=== PATIENT | female | born 1950 | race Caucasian/White ===

== ENCOUNTER 2022-12-24 | Outpatient (REF) | payer MEDICARE, OTHER, SELFPAY | END 2022-12-24 00:01 | disposition home or self-care (01) | LOC: CF | PROVIDERS: Visit Provider Nurse Practitioner Family | DX: R06.09 Other forms of dyspnea (principal); Z79.899 Other long term (current) drug therapy; Z87.891 Personal history of nicotine dependence | CPT/HCPCS: 99212 ==

== ENCOUNTER 2022-12-24 14:01 | Outpatient (AMB) | payer MEDICARE, OTHER, SELFPAY ==
[2022-12-24 14:25] VITALS: BP 122/68; PULSE 72; O2SAT 98; BMI 30.6
--- NOTE | 2022-12-24 14:25 | MHC.OFFVIS ---
Intake Vital Signs 12/24/22 14:25 Height 5 ft 3 in Weight 173 lb BMI 30.6 BP 122/68 Blood Pressure Location Rt brachial Position Sitting Pulse 72 Pulse Source Pulse Oximeter Pulse Oximetry (%) 98 Oxygen Delivery Method Room Air Intake Visit Reasons: excessive shortness of breath Template Maker Required: No System Integration Engineer: System Integration Engineer offered & declined Accompanied by: Spouse Allergies No Known Allergies Allergy (Verified 12/24/22 14:35) Medication List - Last Reconciled 12/24/22 by Diana Gamez LPN atorvastatin 20 mg PO DAILY bupropion HCl (Wellbutrin XL) 150 mg PO QAM gabapentin 900 mg PO TID metoprolol tartrate 12.5 mg PO BID omeprazole 40 mg PO BID HPI excessive shortness of breath HPI Details Kathie is a pleasant 72 year old female, former smoker, less than 10 pack year history, quit over 30 years ago, with underlying hypertension and hypercholesterolemia. She was referred for pulmonary evaluation for sudden onset dyspnea after cardiology evaluation was reportedly unremarkable. She reports about three months ago she developed dyspnea, with very minimal exertion. She was evaluated and hypertensive medications were adjusted. She also has had an echo and stress test which did not reveal anything of significance. Reports not available, will obtain. Since then she reports moderate improvements but still with dyspnea with moderate exertion. She denies cough, chest tightness or wheezing. She denies any orthopnea but reports infrequent bilateral lower extremity edema. She states that she has been prescribed lasix in the past but has only used a few times over the past year. She denies any allergic symptoms. She denies any prior respiratory conditions. She denies any family history of respiratory conditions. She denies any occupational exposures. [facility] Surgical History (Updated 12/20/22 @ 10:34 by Diana Gamez LPN) History of hip replacement Hx of cholecystectomy Social History (Updated 12/24/22 @ 14:38 by Diana Gamez LPN) Patient Tobacco Use Status: Former Tobacco user Cigarette Packs Per Day: 0.75 Cigarettes Per Day: 15 Years Smoked: 12 Review of Systems Const Denies chills, Denies excessive sweating, Denies fever(s), Denies headache(s) and Denies night sweats Eyes Denies dry eyes, Denies irritation and Denies itchy eyes ENT Reports Normal hearing present, Denies headache(s), Denies nasal congestion, Denies nasal discharge, Denies post nasal drip and Denies sore throat Card Denies chest pain, Denies chest pain at rest, Denies chest pain with activity, Denies claudication, Denies leg edema, Denies dyspnea, Denies orthopnea and Denies paroxysmal nocturnal dyspnea Resp Denies chest congestion, Denies cough, Denies excessive phlegm production, Denies pain on inspiration, Denies pain with cough, Denies dyspnea, Denies stridor and Denies wheezing Musc Denies myalgias Neuro Reports Normal hearing present and Denies headache(s) Endo Denies excessive sweating Jens/Lymph Denies lymphadenopathy Aller/Immun Denies itchy eyes, Denies seasonal rhinorrhea and Denies wheezing Physical Exam Vital Signs: Last Vital Signs Pulse 72 12/24/22 14:25 BP 122/68 12/24/22 14:25 Pulse Ox 98 12/24/22 14:25 Oxygen Delivery Method Room Air 12/24/22 14:25 BMI result Body Mass Index 30.6 Const General: cooperative, healthy appearing, comfortable, no acute distress, well developed and alert Nutritional Appearance: obese Orientation/consciousness: patient oriented x3 Limitations: no limitations HEENT Head: Yes normal to inspection, Yes normocephalic and Yes atraumatic Ears: hearing grossly normal bilaterally and external ears normal Eyes General: appearance normal, both eyes and all related structures Eyelids: Yes eyelids normal Sclerae: sclerae normal EOM: EOMs intact bilaterally Neck Neck: Yes normal visual inspection and Yes no lymphadenopathy Lymphatic: no lymphadenopathy noted Chest Chest palpation & inspection: normal inspection of the chest Resp Effort & Inspection: normal respiratory effort, able to speak in complete sentences, no audible wheezes, no cough, no stridor, not tachypneic, no tripod positioning and no use of accessory muscles Auscultation: clear to auscultation bilaterally Cardio Jugular venous distension: no JVD Rate: regular rate Rhythm: regular rhythm Skin Other: warm, dry General skin exam: no rashes or lesions noted Neuro General: patient oriented x3 Cranial nerves: Yes Normal hearing present Cognition (Neuro): normal cognition Gait exam (Neuro): Normal gait present Extrem General: Yes normal to inspection, Yes capillary refill normal, Yes no clubbing, cyanosis or edema and Yes no pedal edema Psych Appearance: grossly normal and well kempt Speech and movement: Normal speech and movement present and Clear speech present Affect: normal affect Attitude: cooperative Thought process: Normal thought process present Thought content: Normal thought content present Insight: Good insight present (Psych) Judgement: Good judgement present (Psych) Assessment & Plan Assessment & Plan (1) Dyspnea on exertion: Code(s): R06.09 - Other forms of dyspnea Plan Kathie's symptoms may be multifactorial with contribution from pulmonary, cardiac and obesity/deconditioning etiologies. Will send for PFT to evaluate. Will also obtain previous cardiology reports to review echo, stress test and CXR. Unfortunately, there is no supplemental oxygen in office, will have patient schedule a 6MWT on Saturday to evaluate for hypoxia. All questions were answered and patient is in agreement of plan. Will follow up in 6 weeks to review PFT results or sooner if needed. Orders: Orders PFT pulmonary function test Today R06.09 - Other forms of dyspnea Coding Level of Care Code New Pt Level 4 (08444) Diagnoses Dyspnea on exertion R06.09
== END 2022-12-24 15:31 | disposition home or self-care (01) ==
PROVIDERS: PCP Physician Assistant; Visit Provider Nurse Practitioner Family
DX: R06.09 Other forms of dyspnea (principal)
CPT/HCPCS: 99204

== ENCOUNTER 2022-12-26 13:47 | Outpatient (AMB) | payer MEDICARE, OTHER, SELFPAY ==
--- NOTE | 2022-12-27 14:30 | MHC.OFFVIS ---
Intake Intake Visit Reasons: 6MW Intake Note: Patient seen today to do a 6 minute walk. Missile Tracking Technician Required: No Skiver Operator: Skiver Operator offered & declined Accompanied by: Self / Same As Patient Allergies No Known Allergies Allergy (Verified 12/27/22 14:34) Medication List - Last Reconciled 12/27/22 by Diana Gamez LPN atorvastatin 20 mg PO DAILY bupropion HCl (Wellbutrin XL) 150 mg PO QAM gabapentin 900 mg PO TID metoprolol tartrate 12.5 mg PO BID omeprazole 40 mg PO BID PFSH Surgical History (Updated 12/20/22 @ 10:34 by Diana Gamez LPN) History of hip replacement Hx of cholecystectomy Social History (Updated 12/24/22 @ 14:38 by Diana Gamez LPN) Patient Tobacco Use Status: Former Tobacco user Cigarette Packs Per Day: 0.75 Cigarettes Per Day: 15 Years Smoked: 12 Office Procedures 6 Minute Walk Time:: 14:00 SPO2 % at rest: 97 Pulse at rest: 66 SPO2 % during excercise: 96 Pulse during excercise: 113 SPO2 % after excercise: 98 Pulse after excercise: 92 Distance in yards walked: 1,000 Liu Score: 5 Performance Observations:: Patient was able to walk unassisted on level ground. Patient was able to maintain O2 saturation at 96% or higher during the entire walk. Denies shortness of breath.No supplemental O2 was required. [address]63 - 6 Minute Walk Assessment & Plan Assessment & Plan Orders: Orders AMB 6 minute walk 12/26/22 R06.09 - Other forms of dyspnea Coding Level of Care Code Est Pt Level 1 (53997) CPT Codes Coding ([id number])
[2022-12-27 14:40] VITALS: PULSE 66; O2SAT 97
== END 2022-12-26 14:18 | disposition home or self-care (01) ==
LOC: HO.HPSW 13:47
PROVIDERS: PCP Physician Assistant; Visit Provider Nurse Practitioner Family
DX: R06.09 Other forms of dyspnea (principal)
CPT/HCPCS: 94618; 99211

== ENCOUNTER 2023-01-25 13:14 | Outpatient (REF) | payer MEDICARE, OTHER, SELFPAY ==
--- NOTE | 2023-01-25 14:30 | PFT_ITS ---
FLOWS: 1. FEV1 80% of predicted at 0.61 L. 2. FVC 115% of predicted at 3.25 L. 3. FEV1/FVC ratio of 0.2. 4. Positive bronchodilator response. LUNG VOLUMES: 1. Total lung capacity 99% of predicted at 4.77 L. 2. Residual volume 86% of predicted at 1.62 L. 3. Slow vital capacity 109% of predicted at 3.15 L. 4. Expiratory reserve volume 51% of predicted at 0.35 L. 5. Diffusion capacity is mildly decreased. IMPRESSION: Severe obstructive ventilatory defect with bronchodilator response. Decreased diffusion capacity suggesting emphysema. MD RANDOLPH Israel/MODL / [id number]
== END 2023-01-25 13:15 | disposition home or self-care (01) ==
LOC: HO.RESP 13:14
PROVIDERS: PCP Physician Assistant; Visit Provider Nurse Practitioner Family
DX: R06.09 Other forms of dyspnea (principal)
CPT/HCPCS: 94010; 94727; 94729

== ENCOUNTER → 2023-01-25 14:30 | Outpatient (BNV) | payer MEDICARE, OTHER, SELFPAY | PROVIDERS: PCP Physician Assistant; Visit Provider Internal Medicine Pulmonary Disease | DX: R06.09 Other forms of dyspnea (principal) | CPT/HCPCS: 94060; 94727; 94729 ==

== ENCOUNTER 2023-02-05 09:07 | Outpatient (AMB) | payer MEDICARE, OTHER, SELFPAY ==
[2023-02-05 09:12] VITALS: BP 126/70; PULSE 68; O2SAT 96; BMI 31.2
--- NOTE | 2023-02-05 09:12 | MHC.OFFVIS ---
Intake Vital Signs 02/05/23 09:12 Height 5 ft 3 in Weight 176 lb BMI 31.2 BP 126/70 Blood Pressure Location Rt brachial Position Sitting Pulse 68 Pulse Source Pulse Oximeter Pulse Oximetry (%) 96 Oxygen Delivery Method Room Air Intake Visit Reasons: 6 week follow up Children'S Service Supervisor Required: No Implementation Engineer: Implementation Engineer offered & declined Accompanied by: Self / Same As Patient Allergies No Known Allergies Allergy (Verified 02/05/23 09:16) Medication List - Last Reconciled 02/05/23 by Diana aGmez LPN atorvastatin 20 mg PO DAILY bupropion HCl (Wellbutrin XL) 150 mg PO QAM gabapentin 900 mg PO TID metoprolol tartrate 12.5 mg PO BID omeprazole 40 mg PO BID HPI 6 week follow up HPI Details Kathie is a pleasant 72 year old female, former smoker, less than 10 pack year history, quit over 30 years ago, with underlying hypertension and hypercholesterolemia. She was referred for pulmonary evaluation for sudden onset dyspnea after cardiology evaluation was reportedly unremarkable. She reports about three months ago she developed dyspnea, with very minimal exertion. She reports symptoms are back to baseline after Irbesartan / Hydrochlorothiazide was stopped. Today she presents to review chest CT and PFT. [facility] Medical History (Updated 01/29/23 @ 15:32 by Viv Lantigua PA-C) Hypertension Hyperlipidemia GERD (gastroesophageal reflux disease) Osteopenia Osteoarthritis Lumbar spinal stenosis MDD (major depressive disorder) Surgical History (Updated 01/29/23 @ 15:29 by Viv Lantigua PA-C) History of cholecystectomy History of hip replacement Social History (Updated 02/05/23 @ 09:18 by Diana Gaemz LPN) Patient Tobacco Use Status: Former Tobacco user Cigarette Packs Per Day: 0.75 Cigarettes Per Day: 15 Years Smoked: 12 Smoked in Last 30 Days: No Review of Systems Const Denies chills, Denies excessive sweating, Denies fever(s), Denies headache(s) and Denies night sweats Eyes Denies dry eyes, Denies irritation and Denies itchy eyes ENT Reports Normal hearing present, Denies headache(s), Denies nasal congestion, Denies nasal discharge, Denies post nasal drip and Denies sore throat Card Denies chest pain, Denies chest pain at rest, Denies chest pain with activity, Denies claudication, Denies leg edema, Denies dyspnea, Denies orthopnea and Denies paroxysmal nocturnal dyspnea Resp Denies chest congestion, Denies cough, Denies excessive phlegm production, Denies pain on inspiration, Denies pain with cough, Denies dyspnea, Denies stridor and Denies wheezing Musc Denies myalgias Neuro Reports Normal hearing present and Denies headache(s) Endo Denies excessive sweating Jens/Lymph Denies lymphadenopathy Aller/Immun Denies itchy eyes, Denies seasonal rhinorrhea and Denies wheezing Physical Exam Vital Signs: Last Vital Signs Pulse 68 02/05/23 09:12 BP 126/70 02/05/23 09:12 Pulse Ox 96 02/05/23 09:12 Oxygen Delivery Method Room Air 02/05/23 09:12 BMI result Body Mass Index 31.2 Const General: cooperative, healthy appearing, comfortable, no acute distress, well developed and alert Nutritional Appearance: obese Orientation/consciousness: patient oriented x3 Limitations: no limitations HEENT Head: Yes normal to inspection, Yes normocephalic and Yes atraumatic Ears: hearing grossly normal bilaterally and external ears normal Eyes General: appearance normal, both eyes and all related structures Eyelids: Yes eyelids normal Sclerae: sclerae normal EOM: EOMs intact bilaterally Neck Neck: Yes normal visual inspection and Yes no lymphadenopathy Lymphatic: no lymphadenopathy noted Chest Chest palpation & inspection: normal inspection of the chest Resp Effort & Inspection: normal respiratory effort, able to speak in complete sentences, no audible wheezes, no cough, no stridor, not tachypneic, no tripod positioning and no use of accessory muscles Auscultation: clear to auscultation bilaterally Cardio Jugular venous distension: no JVD Rate: regular rate Rhythm: regular rhythm Skin Other: warm, dry General skin exam: no rashes or lesions noted Neuro General: patient oriented x3 Cranial nerves: Yes Normal hearing present Cognition (Neuro): normal cognition Gait exam (Neuro): Normal gait present Extrem General: Yes normal to inspection, Yes capillary refill normal, Yes no clubbing, cyanosis or edema and Yes no pedal edema Psych Appearance: grossly normal and well kempt Speech and movement: Normal speech and movement present and Clear speech present Affect: normal affect Attitude: cooperative Thought process: Normal thought process present Thought content: Normal thought content present Insight: Good insight present (Psych) Judgement: Good judgement present (Psych) Results Reviewed Results Reviewed: Assessment & Plan Assessment & Plan (1) Dyspnea on exertion: Code(s): R06.09 - Other forms of dyspnea Plan Reviewed PFT which revealed severe obstructive ventilatory defect with FEV1/FVC ratio of 0.20 and FEV1 of 80%. There was a positive bronchodilator response as well as a decreased diffusion capacity of 74%, suggestive of emphysema. Will send for chest CT to assess for any parenchymal disease. At the last visit, requested echo, will attempt to obtain again. All questions were answered and patient is in agreement of plan. Will follow up to review results, consider repeating PFT in the future as flow volume loops may suggest some inaccuracies. Orders: Orders CT chest wo IV con Today R06.09 - Other forms of dyspnea Coding Level of Care Code Est Pt Level 4 (51094) Diagnoses Dyspnea on exertion R06.09
== END 2023-02-05 09:53 | disposition home or self-care (01) ==
PROVIDERS: PCP Physician Assistant; Visit Provider Nurse Practitioner Family
DX: R06.09 Other forms of dyspnea (principal)
CPT/HCPCS: 99214

== ENCOUNTER → 2023-02-05 09:07 | Outpatient (BNVA) | payer MEDICARE, OTHER, SELFPAY | PROVIDERS: PCP Physician Assistant; Visit Provider Nurse Practitioner Family | DX: R06.09 Other forms of dyspnea (principal) | CPT/HCPCS: 99212 ==

== ENCOUNTER 2023-02-12 15:04 | Outpatient (REF) | payer MEDICARE, OTHER, SELFPAY ==
--- NOTE | ~2023-02-12 | CT_ITS ---
EXAMINATION: CT CHEST WITHOUT CONTRAST CLINICAL INFORMATION: Dyspnea. COMPARISON: None available. TECHNIQUE: Multidetector volumetric CT imaging of the chest was done. Axial MIP volume rendering provided. Sagittal and coronal reformatted images were obtained. This CT examination was performed using dose optimization techniques as appropriate, variously including the following: *Automated exposure control *Adjustment of mA and/or kV according to patient size (this includes techniques or standardized protocols for targeted exams where dose is matched to indication/reason for exam; i.e. extremities or head) *Use of iterative reconstruction technique DLP: 136 mGy-cm FINDINGS: EYE TECHNICIAN: Unremarkable. LUNGS: There is a 7.5 mm right upper lobe nodule. The lungs are otherwise clear. MEDIASTINUM: Normal in size. There is no significant lymph node enlargement. The right thyroid gland is heterogeneous and appears to be enlarged. CORONARY ARTERY CALCIFICATION: Moderate. PLEURA: There is no pleural effusion. No pleural mass or thickening. AXILLA: No lymphadenopathy. UPPER ABDOMEN: The liver is irregular in contour. There is a 5.2 cm low-density structure left lobe of the liver with low attenuation values likely a cyst. OSSEOUS STRUCTURES: Unremarkable. CT/CT chest wo IV con IMPRESSION: No active cardiopulmonary disease. 7.5 mm right upper lobe nodule. Per the 2017 revised Fleischner Society guidelines, recommend CT follow-up at 2-sf-65-months. In high-risk patients, subsequent CT follow-up at 18-24 months is recommended. In low-risk patients, subsequent CT follow-up at 18-24 months is optional. Enlarged heterogeneous right thyroid gland. Consider nonemergent thyroid ultrasound. Fleischner guidelines were followed.
== END 2023-02-12 15:05 | disposition home or self-care (01) ==
LOC: HO.CT 15:04
PROVIDERS: PCP Physician Assistant; Visit Provider Nurse Practitioner Family
DX: R06.09 Other forms of dyspnea (principal)
CPT/HCPCS: 71250

== ENCOUNTER 2023-02-20 09:00 | Outpatient (AMB) | payer MEDICARE, OTHER, SELFPAY ==
--- NOTE | 2023-02-20 09:11 | MHC.OFFVIS ---
Intake Vital Signs 02/20/23 09:12 Height 5 ft 3 in Weight 179 lb BMI 31.7 BP 114/68 Blood Pressure Location Rt brachial Position Sitting Pulse 78 Pulse Source Pulse Oximeter Pulse Oximetry (%) 97 Oxygen Delivery Method Room Air Intake Visit Reasons: CT results Still Worker Helper Required: No Manager Medicare Marketing: Manager Medicare Marketing offered & declined Accompanied by: Self / Same As Patient Allergies No Known Allergies Allergy (Verified 02/20/23 09:17) Medication List - Last Reconciled 02/20/23 by Diana Gamez LPN atorvastatin 20 mg PO DAILY bupropion HCl (Wellbutrin XL) 150 mg PO QAM gabapentin 900 mg PO TID metoprolol tartrate 12.5 mg PO BID omeprazole 40 mg PO BID HPI CT results HPI Details Kathie is a pleasant 72 year old female, former smoker, less than 10 pack year history, quit over 30 years ago, with underlying hypertension and hypercholesterolemia. She was referred for pulmonary evaluation for sudden onset dyspnea after cardiology evaluation was reportedly unremarkable. She reports about three months ago she developed dyspnea, with very minimal exertion. She reports symptoms are back to baseline after Irbesartan / Hydrochlorothiazide was stopped. She continues to deny any respiratory symptoms. Today she presents to review chest CT and have spirometry performed. [facility] Medical History (Updated 02/20/23 @ 10:14 by Theresa Mccallum NP) Hypertension Hyperlipidemia GERD (gastroesophageal reflux disease) Osteopenia Osteoarthritis Lumbar spinal stenosis MDD (major depressive disorder) Surgical History (Updated 01/29/23 @ 15:29 by Viv Lantigua PA-C) History of cholecystectomy History of hip replacement Social History (Updated 02/20/23 @ 09:18 by Diana Gamez LPN) Patient Tobacco Use Status: Former Tobacco user Cigarette Packs Per Day: 0.75 Cigarettes Per Day: 15 Years Smoked: 12 Physical Exam Vital Signs: Last Vital Signs Pulse 78 02/20/23 09:12 BP 114/68 02/20/23 09:12 Pulse Ox 97 02/20/23 09:12 Oxygen Delivery Method Room Air 02/20/23 09:12 BMI result Body Mass Index 31.7 Results Reviewed Results Reviewed: [address] [address] [address] Scan Report Signed Patient: Kathie Coleman MR#: [id number] : 1950 Acct:[id number] Age/Sex: 72 / F ADM Date: 02/12/23 Loc: HO.CT Attending Dr: Theresa Mccallum NP Ordering Physician: Theresa Mccallum NP Date of Service: 02/12/23 Procedure(s): CT chest wo IV con Accession Number(s): [id number] cc: CED GRANDA; Theresa Mccallum NP~ EXAMINATION: CT CHEST WITHOUT CONTRAST CLINICAL INFORMATION: Dyspnea. COMPARISON: None available. TECHNIQUE: Multidetector volumetric CT imaging of the chest was done. Axial MIP volume rendering provided. Sagittal and coronal reformatted images were obtained. This CT examination was performed using dose optimization techniques as appropriate, variously including the following: *Automated exposure control *Adjustment of mA and/or kV according to patient size (this includes techniques or standardized protocols for targeted exams where dose is matched to indication/reason for exam; i.e. extremities or head) *Use of iterative reconstruction technique DLP: 136 mGy-cm FINDINGS: EXPORT AGENT: Unremarkable. LUNGS: There is a 7.5 mm right upper lobe nodule. The lungs are otherwise clear. MEDIASTINUM: Normal in size. There is no significant lymph node enlargement. The right thyroid gland is heterogeneous and appears to be enlarged. CORONARY ARTERY CALCIFICATION: Moderate. PLEURA: There is no pleural effusion. No pleural mass or thickening. AXILLA: No lymphadenopathy. UPPER ABDOMEN: The liver is irregular in contour. There is a 5.2 cm low-density structure left lobe of the liver with low attenuation values likely a cyst. OSSEOUS STRUCTURES: Unremarkable. CT/CT chest wo IV con IMPRESSION: No active cardiopulmonary disease. 7.5 mm right upper lobe nodule. Per the 2017 revised Fleischner Society guidelines, recommend CT follow-up at 4-yp-97-months. In high-risk patients, subsequent CT follow-up at 18-24 months is recommended. In low-risk patients, subsequent CT follow-up at 18-24 months is optional. Enlarged heterogeneous right thyroid gland. Consider nonemergent thyroid ultrasound. Fleischner guidelines were followed. Assessment & Plan Assessment & Plan (1) Dyspnea on exertion: Code(s): R06.09 - Other forms of dyspnea (2) Pulmonary nodule: Code(s): R91.1 - Solitary pulmonary nodule (3) Enlargement of thyroid: Code(s): E04.9 - Nontoxic goiter, unspecified Plan Reviewed chest CT which revealed a 7.5 mm right upper lobe nodule. Will send for repeat chest CT in 6 months. There was also note of an enlarged heterogeneous right thyroid gland. Will send for ultrasound of thyroid and refer to endocrinology if needed. All questions were answered and patient is in agreement of plan. Will follow up in 6 months or sooner if needed. Orders: Orders CT chest wo IV con 6 Months R91.1 - Solitary pulmonary nodule, Z91.89 - Other specified personal risk factors, not elsewhere classified US thyroid Today E04.9 - Nontoxic goiter, unspecified Coding Level of Care Code Est Pt Level 4 (10210) Diagnoses Dyspnea on exertion R06.09 Pulmonary nodule R91.1 Enlargement of thyroid E04.9
[2023-02-20 09:12] VITALS: BP 114/68; PULSE 78; O2SAT 97; BMI 31.7
== END 2023-02-20 09:57 | disposition home or self-care (01) ==
PROVIDERS: PCP Physician Assistant; Visit Provider Nurse Practitioner Family
DX: R06.09 Other forms of dyspnea (principal); R91.1 Solitary pulmonary nodule; E04.9 Nontoxic goiter, unspecified
CPT/HCPCS: 99214

== ENCOUNTER → 2023-02-20 09:00 | Outpatient (BNVA) | payer MEDICARE, OTHER, SELFPAY | PROVIDERS: PCP Physician Assistant; Visit Provider Nurse Practitioner Family | DX: R06.09 Other forms of dyspnea (principal); R91.1 Solitary pulmonary nodule; E04.9 Nontoxic goiter, unspecified | CPT/HCPCS: 99212 ==

== ENCOUNTER 2023-03-27 14:18 | Outpatient (REF) | payer MEDICARE, OTHER, SELFPAY | END 2023-03-27 14:19 | disposition home or self-care (01) | LOC: HO.US 14:18 | PROVIDERS: PCP Physician Assistant; Visit Provider Nurse Practitioner Family | DX: E04.9 Nontoxic goiter, unspecified (principal) | CPT/HCPCS: 76536 ==

== ENCOUNTER 2023-09-04 16:01 | Outpatient (REF) | payer MEDICARE, OTHER, SELFPAY ==
--- NOTE | ~2023-09-04 | CT_ITS ---
EXAMINATION: CT CHEST WITHOUT CONTRAST CLINICAL INFORMATION: Right upper lobe nodule COMPARISON: 02/12/2023 TECHNIQUE: Multidetector volumetric CT imaging of the chest was done. Axial MIP volume rendering provided. Sagittal and coronal reformatted images were obtained. This CT examination was performed using dose optimization techniques as appropriate, variously including the following: *Automated exposure control *Adjustment of mA and/or kV according to patient size (this includes techniques or standardized protocols for targeted exams where dose is matched to indication/reason for exam; i.e. extremities or head) *Use of iterative reconstruction technique DLP: 146 mGy-cm FINDINGS: MAINTENANCE SERVICE SUPERVISOR: Unremarkable LUNGS: There is stable right upper lobe 0.7 x 0.5 cm nodule. The lungs are clear and well expanded. There are a few punctate calcified granulomas seen on the right. MEDIASTINUM: There is trace of pericardial effusion. There is no mediastinal or hilar lymphadenopathy. Aorta is not dilated. No evidence of pulmonary hypertension. Patient is status post thyroidectomy CORONARY ARTERY CALCIFICATION: Moderate PLEURA: There is no pleural effusion. No pleural mass or thickening. AXILLA: No lymphadenopathy. UPPER ABDOMEN: There is stable cystic structure extending from the left lobe of the liver, measured 5.4 x 4.5 cm. Visualized liver otherwise is unremarkable and gallbladder and is not seen. OSSEOUS STRUCTURES: There is levoscoliosis of lower thoracic spine and degenerative changes at the level of T12-L1 CT/CT chest wo IV con IMPRESSION: 1. Stable right upper lobe nodule. 2. Stable cystic structure in the left lobe of the liver. 3. Status post thyroidectomy. Per the 2017 revised Fleischner Society guidelines, recommend CT follow-up at 5-ng-22-months. In high-risk patients, subsequent CT follow-up at 18-24 months is recommended. In low-risk patients, subsequent CT follow-up at 18-24 months is optional.
== END 2023-09-04 16:02 | disposition home or self-care (01) ==
LOC: HO.CT 16:01
PROVIDERS: PCP Physician Assistant; Visit Provider Nurse Practitioner Family
DX: R91.1 Solitary pulmonary nodule (principal); Z91.89 Other specified personal risk factors, not elsewhere classified
CPT/HCPCS: 71250

== ENCOUNTER 2023-09-18 11:35 | Outpatient (AMB) | payer MEDICARE, OTHER, SELFPAY ==
[2023-09-18 11:38] VITALS: BP 124/86; PULSE 78; O2SAT 97; BMI 33.6
--- NOTE | 2023-09-18 11:38 | A.OFFVIS_ITS ---
Vital Signs 09/18/23 11:38 Height 5 ft 3 in Weight 189 lb 8 oz BMI 33.6 BP 124/86 Blood Pressure Location Rt brachial Position Sitting Pulse 78 Pulse Source Pulse Oximeter Pulse Oximetry (%) 97 Oxygen Delivery Method Room Air Intake Visit Reasons: dyspnea Allergies No Known Allergies Allergy (Verified 09/18/23 11:40) HPI HPI dyspnea: Details: Kathie is a pleasant 72 year old female, former smoker, less than 10 pack year history, quit over 30 years ago, with underlying hypertension and hyp ercholesterolemia. She was initially referred for dyspnea with exertion, which resolved with adjusting cardiac regimen. She had been doing quite well denying any respiratory symptoms until recent thyroidectomy which was performed 5 weeks ago at [facility] for thyroid carcinoma. She reports dyspnea on exertion and dry cough. She denies any wheezing or chest tightness. She attributes symptoms to possible surgery, hot humid weather and allergies. She is not interested any allergy testing at this time. Patient presents today to review chest CT results, unfortunately there is no official read by Radiology at this time. [facility] Medical History (Updated 09/18/23 @ 12:55 by Theresa Mccallum NP) Hypertension Hyperlipidemia GERD (gastroesophageal reflux disease) Osteopenia Osteoarthritis Lumbar spinal stenosis MDD (major depressive disorder) Surgical History (Updated 01/29/23 @ 15:29 by Viv Lantigua PA-C) History of cholecystectomy History of hip replacement Social History Patient Tobacco Use Status: Former Tobacco user Cigarette Packs Per Day: 0.75 Cigarettes Per Day: 15 Years Smoked: 12 Review of Systems Const Denies chills, Denies excessive sweating, Denies fever(s), Denies headache(s) and Denies night sweats Eyes Denies dry eyes, Denies irritation and Denies itchy eyes ENT Reports Normal hearing present, Denies headache(s), Denies nasal congestion, Denies nasal discharge and Denies post nasal drip Card Denies chest pain, Denies chest pain at rest, Denies chest pain with activity, Denies claudication, Denies leg edema, Denies orthopnea and Denies paroxysmal nocturnal dyspnea Resp Denies chest congestion, Denies excessive phlegm production, Denies pain on inspiration, Denies pain with cough, Denies stridor and Denies wheezing Musc Denies myalgias Neuro Reports Normal hearing present and Denies headache(s) Endo Denies excessive sweating Jens/Lymph Denies lymphadenopathy Aller/Immun Denies itchy eyes, Denies seasonal rhinorrhea and Denies wheezing Physical Exam Vital Signs: Last Vital Signs Pulse 78 09/18/23 11:38 BP 124/86 09/18/23 11:38 Pulse Ox 97 09/18/23 11:38 Oxygen Delivery Method Room Air 09/18/23 11:38 BMI result Body Mass Index 33.6 Const General: cooperative, healthy appearing, comfortable, no acute distress, well developed and alert Nutritional Appearance: obese Orientation/consciousness: patient oriented x3 Limitations: no limitations HEENT Head: Yes normal to inspection, Yes normocephalic and Yes atraumatic Ears: hearing grossly normal bilaterally and external ears normal Eyes General: appearance normal, both eyes and all related structures Eyelids: Yes eyelids normal Sclerae: sclerae normal EOM: EOMs intact bilaterally Neck Neck: Yes normal visual inspection and Yes no lymphadenopathy Lymphatic: no lymphadenopathy noted Chest Chest palpation & inspection: normal inspection of the chest Resp Effort & Inspection: normal respiratory effort, able to speak in complete sentences, no audible wheezes, no cough, no stridor, not tachypneic, no tripod positioning and no use of accessory muscles Cardio Jugular venous distension: no JVD Rate: regular rate Rhythm: regular rhythm Skin Other: warm, dry General skin exam: no rashes or lesions noted Neuro General: patient oriented x3 Cranial nerves: Yes Normal hearing present Cognition (Neuro): normal cognition Gait exam (Neuro): Normal gait present Extrem General: Yes normal to inspection, Yes capillary refill normal, Yes no clubbing, cyanosis or edema and Yes no pedal edema Psych Appearance: grossly normal and well kempt Speech and movement: Normal speech and movement present and Clear speech present Affect: normal affect Attitude: cooperative Thought process: Normal thought process present Thought content: Normal thought content present Insight: Good insight present (Psych) Judgement: Good judgement present (Psych) Assessment & Plan Assessment & Plan (1) Dyspnea on exertion: Code(s): R06.09 - Other forms of dyspnea Category: Medical (2) Pulmonary nodule: Code(s): R91.1 - Solitary pulmonary nodule Category: Medical (3) Enlargement of thyroid: Code(s): E04.9 - Nontoxic goiter, unspecified Category: Medical (4) Reactive airway disease: Code(s): J45.909 - Unspecified asthma, uncomplicated Category: Medical Plan Kathie presents with worsening dyspnea over the last 5 weeks, will trial daily inhaler to see if she has symptomatic improvement. She presented today to review chest CT results as there was a 7.5 mm right upper lobe nodule found on imaging 6 months ago, unfortunately there is no official read from Radiology. Will call patient when results available. All questions were answered and patient is in agreement of plan. Will follow up in 6-8 weeks to review response to inhaler or sooner if needed. Medications: New ciclesonide 80 mcg/actuation ([place]) 1 puff inhalation BID 6.1 grams 3RF Coding Level of Care Code Est Pt Level 4 (43572) Diagnoses Dyspnea on exertion R06.09 Pulmonary nodule R91.1 Enlargement of thyroid E04.9 Reactive airway disease J45.909
== END 2023-09-18 12:21 | disposition home or self-care (01) ==
PROVIDERS: PCP Physician Assistant; Visit Provider Nurse Practitioner Family
DX: R06.09 Other forms of dyspnea (principal); R91.1 Solitary pulmonary nodule; E04.9 Nontoxic goiter, unspecified; J45.909 Unspecified asthma, uncomplicated
CPT/HCPCS: 99214

== ENCOUNTER → 2023-09-18 11:35 | Outpatient (BNVA) | payer MEDICARE, OTHER, SELFPAY | PROVIDERS: PCP Physician Assistant; Visit Provider Nurse Practitioner Family | DX: R06.09 Other forms of dyspnea (principal); R91.1 Solitary pulmonary nodule; J45.909 Unspecified asthma, uncomplicated; E04.9 Nontoxic goiter, unspecified | CPT/HCPCS: 99212 ==

== ENCOUNTER 2023-11-15 13:21 | Outpatient (AMB) | payer MEDICARE, OTHER, SELFPAY ==
[2023-11-15 13:22] VITALS: BP 132/76; PULSE 74; O2SAT 97; BMI 34.5
--- NOTE | 2023-11-15 13:22 | MHC.OFFVIS ---
Vital Signs 11/15/23 13:22 Height 5 ft 3 in Weight 194 lb 8 oz BMI 34.5 BP 132/76 Blood Pressure Location Rt brachial Position Sitting Pulse 74 Pulse Source Pulse Oximeter Pulse Oximetry (%) 97 Oxygen Delivery Method Room Air Intake Visit Reasons: PET Scan Follow Up Allergies No Known Allergies Allergy (Verified 11/15/23 13:25) HPI HPI PET Scan Follow Up: Details: Kathie is a pleasant 72 year old female, former smoker, less than 10 pack year history, quit over 30 years ago, with underlying thryoid carcinoma s/p thryoidectomy 07/2023, hypertension and hypercholesterolemia. She was initially referred for dyspnea with exertion, which resolved with adjusting cardiac regimen, however symptoms have recurred. She was started on ICS with minimal effect and switched to Breo. She reports minimal improvements since starting two weeks ago, continuing to use albuterol daily. She continues with dyspnea, denies wheezing, or chest tightness. She reports dry cough which she attributes to thyroidectomy. She was sent for chest CT to assess stability of 8mm RUL pulmonary nodule which revealed changes to the solid component of the nodule and sent for PET. Today she presents to review PET scan results. [facility] Medical History (Updated 09/18/23 @ 12:55 by Theresa Mccallum NP) Hypertension Hyperlipidemia GERD (gastroesophageal reflux disease) Osteopenia Osteoarthritis Lumbar spinal stenosis MDD (major depressive disorder) Surgical History (Updated 01/29/23 @ 15:29 by Viv Lantigua PA-C) History of cholecystectomy History of hip replacement Social History Patient Tobacco Use Status: Former Tobacco user Cigarette Packs Per Day: 0.75 Cigarettes Per Day: 15 Years Smoked: 12 Review of Systems Const Denies chills, Denies excessive sweating, Denies fever(s), Denies headache(s) and Denies night sweats Eyes Denies dry eyes, Denies irritation and Denies itchy eyes ENT Reports Normal hearing present, Denies headache(s), Denies nasal congestion, Denies nasal discharge and Denies post nasal drip Card Denies chest pain, Denies chest pain at rest, Denies chest pain with activity, Denies claudication, Denies leg edema, Denies orthopnea and Denies paroxysmal nocturnal dyspnea Resp Denies chest congestion, Denies excessive phlegm production, Denies pain on inspiration, Denies pain with cough, Denies stridor and Denies wheezing Musc Denies myalgias Neuro Reports Normal hearing present and Denies headache(s) Endo Denies excessive sweating Jens/Lymph Denies lymphadenopathy Aller/Immun Denies itchy eyes, Denies seasonal rhinorrhea and Denies wheezing Physical Exam Vital Signs: Last Vital Signs Pulse 74 11/15/23 13:22 BP 132/76 11/15/23 13:22 Pulse Ox 97 11/15/23 13:22 Oxygen Delivery Method Room Air 11/15/23 13:22 BMI result Body Mass Index 34.5 Const General: cooperative, healthy appearing, comfortable, no acute distress, well developed and alert Nutritional Appearance: obese Orientation/consciousness: patient oriented x3 Limitations: no limitations HEENT Head: Yes normal to inspection, Yes normocephalic and Yes atraumatic Ears: hearing grossly normal bilaterally and external ears normal Eyes General: appearance normal, both eyes and all related structures Eyelids: Yes eyelids normal Sclerae: sclerae normal EOM: EOMs intact bilaterally Neck Neck: Yes normal visual inspection and Yes no lymphadenopathy Lymphatic: no lymphadenopathy noted Chest Chest palpation & inspection: normal inspection of the chest Resp Effort & Inspection: normal respiratory effort, able to speak in complete sentences, no audible wheezes, no cough, no stridor, not tachypneic, no tripod positioning and no use of accessory muscles Cardio Jugular venous distension: no JVD Rate: regular rate Rhythm: regular rhythm Skin Other: warm, dry General skin exam: no rashes or lesions noted Neuro General: patient oriented x3 Cranial nerves: Yes Normal hearing present Cognition (Neuro): normal cognition Gait exam (Neuro): Normal gait present Extrem General: Yes normal to inspection, Yes capillary refill normal, Yes no clubbing, cyanosis or edema and Yes no pedal edema Psych Appearance: grossly normal and well kempt Speech and movement: Normal speech and movement present and Clear speech present (hoarse d/t thyroidectomy) Affect: normal affect Attitude: cooperative Thought process: Normal thought process present Thought content: Normal thought content present Insight: Good insight present (Psych) Judgement: Good judgement present (Psych) Results Reviewed Results Reviewed: Assessment & Plan Assessment & Plan (1) Dyspnea on exertion: Code(s): R06.09 - Other forms of dyspnea Category: Medical (2) Pulmonary nodule: Code(s): R91.1 - Solitary pulmonary nodule Category: Medical (3) Enlargement of thyroid: Code(s): E04.9 - Nontoxic goiter, unspecified Category: Medical (4) Reactive airway disease: Code(s): J45.909 - Unspecified asthma, uncomplicated Category: Medical Plan Reviewed PET which revealed minimal activity however indeterminate as nodule on the smaller size of criteria for PET. Will rescan in 3 months from last chest CT which would be November, however patient requesting this be scheduled in December. Will enter order to assess for stability. In regards to dyspnea, encouraged patient to use Advair for another two weeks, as she recently started. Will consider switching to Trelegy as she reported improvements since switching from ICS. All questions were answered and patient is in agreement of plan. Will follow up to review results of chest CT or sooner if needed. Orders: Orders CT chest wo IV con 6 Weeks R91.1 - Solitary pulmonary nodule Coding Level of Care Code Est Pt Level 4 (05020) Diagnoses Dyspnea on exertion R06.09 Pulmonary nodule R91.1 Enlargement of thyroid E04.9 Reactive airway disease J45.909
== END 2023-11-15 14:07 | disposition home or self-care (01) ==
PROVIDERS: PCP Physician Assistant; Visit Provider Nurse Practitioner Family
DX: R06.09 Other forms of dyspnea (principal); R91.1 Solitary pulmonary nodule; E04.9 Nontoxic goiter, unspecified; J45.909 Unspecified asthma, uncomplicated
CPT/HCPCS: 99214

== ENCOUNTER → 2023-11-15 13:21 | Outpatient (BNVA) | payer MEDICARE, OTHER, SELFPAY | PROVIDERS: PCP Physician Assistant; Visit Provider Nurse Practitioner Family | DX: J45.909 Unspecified asthma, uncomplicated (principal); R06.09 Other forms of dyspnea; R91.1 Solitary pulmonary nodule; E04.9 Nontoxic goiter, unspecified; Z87.891 Personal history of nicotine dependence | CPT/HCPCS: 99212 ==

== ENCOUNTER 2023-12-27 12:55 | Outpatient (REF) | payer MEDICARE, OTHER, SELFPAY ==
--- NOTE | ~2023-12-27 | CT_ITS ---
EXAMINATION: CT CHEST WITHOUT CONTRAST CLINICAL INFORMATION: Solitary pulmonary nodule. COMPARISON: 09/04/2023, 02/12/2023. TECHNIQUE: Multidetector volumetric CT imaging of the chest was done. Axial MIP volume rendering provided. Sagittal and coronal reformatted images were obtained. This CT examination was performed using dose optimization techniques as appropriate, variously including the following: *Automated exposure control *Adjustment of mA and/or kV according to patient size (this includes techniques or standardized protocols for targeted exams where dose is matched to indication/reason for exam; i.e. extremities or head) *Use of iterative reconstruction technique DLP: 144 mGy-cm FINDINGS: PULMONARY NODULES: -There is a complete stable and unchanged intrabronchial right upper lobe nodule (series 5, image 141) measuring 1.0 x 0.9 by CM, unchanged when measured in similar technique on both prior examinations, consistent with benignity. This is likely a focus of mucoid impaction within a bronchus. -There are a few stable tiny 1-2 mm calcified and noncalcified nodules bilaterally, without change from 2022, benign. -No new or enlarging nodules seen. LUNGS: -Lungs otherwise clear without evidence of active disease or abnormal opacities. -Small airways appear normal without thickening. -No evidence of interstitial lung disease. -No pleural or pericardial effusion. No pneumothorax. MEDIASTINUM: -Multinodular thyroid, evaluated on thyroid ultrasound 03/27/2023. -The aorta is mildly calcified without evidence of aneurysm. Mild ectasia of the ascending aorta at 3.8 cm. -Main pulmonary artery is normal. -There is no adenopathy. -There is calcification of the aortic annulus. -Heart size is normal. No pericardial effusion. Small amount of fluid in the superior pericardial recesses. -Esophagus is normal in appearance. CORONARY ARTERY CALCIFICATION: Moderate to heavy four-vessel calcifications. AXILLA\CHEST WALL: -No masses or lymphadenopathy. Normal appearance. UPPER ABDOMEN: -Large stable cyst arising from segment 2 of the liver, measuring approximately 5.4 x 4.5 cm in axial plane. -Gallbladder not well seen. -Liver otherwise normal without focal abnormality. -Moderate calcification abdominal aorta, no aneurysm is seen. -Remainder of the upper abdominal contents appear normal. OSSEOUS STRUCTURES: -[id number] S-shaped scoliosis of the thoracolumbar spine, most prominently convex to the left, apex at T12-L1. -Associated degenerative spondylosis of the spine. Severe disc degeneration evident T11-12 and T12-L1 with sclerosis of the endplates. -No suspicious lytic or blastic bone lesions. CT/CT chest wo IV con IMPRESSION: 1. Stable intrabronchial nodule measuring up to 1.0 cm right upper lobe without significant change when compared with 02/12/2023. This is likely a focus of mucoid impaction. Lack of interval growth is consistent with a benign entity. No new or enlarging nodules. 2. A few stable punctate calcified 1-2 mm calcified and noncalcified granulomata. 3. Lungs otherwise clear without evidence of active disease. 4. Additional stable ancillary findings as discussed. Fleischner guidelines were followed. Electronically signed by: Eloy Mattson MD 02/26/2024 12:10 PM [facility]
== END 2023-12-27 12:56 | disposition home or self-care (01) ==
LOC: HO.CT 12:55
PROVIDERS: PCP Physician Assistant; Visit Provider Nurse Practitioner Family
DX: R91.1 Solitary pulmonary nodule (principal)
CPT/HCPCS: 71250

== ENCOUNTER → 2023-12-27 12:57 | Outpatient (BNV) | payer MEDICARE, OTHER, SELFPAY | PROVIDERS: PCP Physician Assistant; Visit Provider Radiology Diagnostic Radiology | DX: R91.1 Solitary pulmonary nodule (principal); J84.10 Pulmonary fibrosis, unspecified | CPT/HCPCS: 71250 ==

== ENCOUNTER 2024-01-22 12:52 | Outpatient (AMB) | payer MEDICARE, OTHER, SELFPAY ==
[2024-01-22 12:59] VITALS: BP 110/60; PULSE 76; O2SAT 97; BMI 35.1
--- NOTE | 2024-01-22 12:59 | A.OFFVIS_ITS ---
Vital Signs 01/22/24 12:59 Height 5 ft 3 in Weight 198 lb BMI 35.1 BP 110/60 Blood Pressure Location Rt brachial Position Sitting Pulse 76 Pulse Source Pulse Oximeter Pulse Oximetry (%) 97 Oxygen Delivery Method Room Air Intake Visit Reasons: PET Scan Follow Up Pharmaceutical Worker Required: No Light Bulb Tester: Light Bulb Tester offered & declined Accompanied by: Self / Same As Patient Allergies No Known Allergies Allergy (Verified 01/22/24 13:04) Medication List - Last Reconciled 01/22/24 by Diana Gamez LPN albuterol sulfate 90 mcg/actuation 2 puffs inhalation Q4-6H PRN atorvastatin 20 mg PO DAILY bupropion HCl XL (Wellbutrin XL) 150 mg PO QAM [id number] 200-62.5-25 mcg (Trelegy Ellipta) 1 inh inhalation DAILY gabapentin 900 mg PO TID levothyroxine mcg PO metoprolol tartrate 12.5 mg PO BID omeprazole 40 mg PO BID HPI HPI PET Scan Follow Up: Details: Kathie is a pleasant 73 year old female, former smoker, less than 10 pack year history, quit over 30 years ago, with underlying thryoid carcinoma s/p thryoidectomy 07/2023, hypertension and hypercholesterolemia. She was initially referred for dyspnea with exertion, which resolved with adjusting cardiac regimen, however symptoms have recurred. She has trialed Trelegy, previously Breo with minimal effect. She cough, wheezing or chest tightness. She denies BLE edema or orthopnea. She has been previously evaluated by cardiology for PALMA however no significant findings. She was sent for chest CT to assess stability of 8mm RUL pulmonary nodule which revealed changes to the solid component of the nodule and sent for PET. PET revealed minimal activity however indeterminate as nodule on the smaller size of criteria for PET. Today she presents to review chest CT today. Unfortunately there is no official read from radiology. COUNTS INCLUDE 234 BEDS AT THE [facility] Medical History (Updated 09/18/23 @ 12:55 by Theresa Mccallum NP) Hypertension Hyperlipidemia GERD (gastroesophageal reflux disease) Osteopenia Osteoarthritis Lumbar spinal stenosis MDD (major depressive disorder) Surgical History (Updated 01/29/23 @ 15:29 by Viv Lantigua PA-C) History of cholecystectomy History of hip replacement Social History Patient Tobacco Use Status: Former Tobacco user Cigarette Packs Per Day: 0.75 Cigarettes Per Day: 15 Years Smoked: 12 Review of Systems Const Denies chills, Denies excessive sweating, Denies fever(s), Denies headache(s) a nd Denies night sweats Eyes Denies dry eyes, Denies irritation and Denies itchy eyes ENT Reports Normal hearing present, Denies headache(s), Denies nasal congestion, Denies nasal discharge and Denies post nasal drip Card Denies chest pain, Denies chest pain at rest, Denies chest pain with activity, Denies claudication, Denies leg edema, Reports dyspnea, Reports dyspnea on exertion, Denies orthopnea and Denies paroxysmal nocturnal dyspnea Resp Denies chest congestion, Denies cough, Denies excessive phlegm production, Denies pain on inspiration, Denies pain with cough, Reports dyspnea, Reports dyspnea on exertion, Denies stridor and Denies wheezing Musc Denies myalgias Neuro Reports Normal hearing present and Denies headache(s) Endo Denies excessive sweating Jens/Lymph Denies lymphadenopathy Aller/Immun Denies itchy eyes, Denies seasonal rhinorrhea and Denies wheezing Physical Exam Vital Signs: Last Vital Signs Pulse 76 01/22/24 12:59 BP 110/60 01/22/24 12:59 Pulse Ox 97 01/22/24 12:59 Oxygen Delivery Method Room Air 01/22/24 12:59 BMI result Body Mass Index 35.1 Const General: cooperative, healthy appearing, comfortable, no acute distress, well developed and alert Nutritional Appearance: obese Orientation/consciousness: patient oriented x3 Limitations: no limitations HEENT Head: Yes normal to inspection, Yes normocephalic and Yes atraumatic Ears: hearing grossly normal bilaterally and external ears normal Eyes General: appearance normal, both eyes and all related structures Eyelids: Yes eyelids normal Sclerae: sclerae normal EOM: EOMs intact bilaterally Neck Neck: Yes normal visual inspection and Yes no lymphadenopathy Lymphatic: no lymphadenopathy noted Chest Chest palpation & inspection: normal inspection of the chest Resp Effort & Inspection: normal respiratory effort, able to speak in complete sentences, no audible wheezes, no cough, no stridor, not tachypneic, no tripod positioning and no use of accessory muscles Auscultation: clear to auscultation bilaterally Cardio Jugular venous distension: no JVD Rate: regular rate Rhythm: regular rhythm Skin Other: warm, dry General skin exam: no rashes or lesions noted Neuro General: patient oriented x3 Cranial nerves: Yes Normal hearing present Cognition (Neuro): normal cognition Gait exam (Neuro): Normal gait present Extrem General: Yes normal to inspection, Yes capillary refill normal, Yes no clubbing, cyanosis or edema and Yes no pedal edema Psych Appearance: grossly normal and well kempt Speech and movement: Normal speech and movement present and Clear speech present Affect: normal affect Attitude: cooperative Thought process: Normal thought process present Thought content: Normal thought content present Insight: Good insight present (Psych) Judgement: Good judgement present (Psych) Assessment & Plan Assessment & Plan (1) Dyspnea on exertion: Code(s): R06.09 - Other forms of dyspnea Category: Medical (2) Pulmonary nodule: Code(s): R91.1 - Solitary pulmonary nodule Category: Medical Plan Reviewed chest CT with patient which revealed minimal change of right upper lobe nodule however will wait for official read from Radiology. Will repeat chest CT in 3-6 months to assess stability. She continues to report dyspnea with any exertion despite the trialing multiple inhalers. Prior PFT performed revealed severe obstructive defect however there were in accuracies in likely related to poor performance. Will repeat PFT. We also discussed the possibility that symptoms are related to deconditioning as she reports significant lower back pain resulting in very minimal activity. All questions were answered and patient is in agreement of plan. Will follow up to review results of PFT or sooner if needed. Orders: Orders PFT pulmonary function test Today R06.09 - Other forms of dyspnea Coding Level of Care Code Est Pt Level 4 (38507) Diagnoses Dyspnea on exertion R06.09 Pulmonary nodule R91.1
== END 2024-01-22 13:30 | disposition home or self-care (01) ==
LOC: HO.HPSW 12:52
PROVIDERS: PCP Physician Assistant; Visit Provider Nurse Practitioner Family
DX: R06.09 Other forms of dyspnea (principal); R91.1 Solitary pulmonary nodule
CPT/HCPCS: 99214

== ENCOUNTER → 2024-01-22 12:52 | Outpatient (BNVA) | payer MEDICARE, OTHER, SELFPAY | PROVIDERS: PCP Physician Assistant; Visit Provider Nurse Practitioner Family | DX: R06.09 Other forms of dyspnea (principal); R91.1 Solitary pulmonary nodule | CPT/HCPCS: 99212 ==

== ENCOUNTER 2024-03-05 14:49 | Outpatient (REF) | payer MEDICARE, OTHER, SELFPAY ==
[2024-03-05 10:48] VITALS: PULSE 72; O2SAT 97
--- NOTE | 2024-03-05 14:54 | PFT_ITS ---
Indication: Scoliosis Spirometry [FEV1 to FVC 78%; FEV1 2.64 L; FVC 3.35 L. No significant response to bronchodilators noted. Maximum voluntary ventilation 104% predicted] Lung Volumes [Total lung capacity 80% predicted; residual volume 74% predicted; expiratory reserve volume 53% predicted] Diffusion Capacity [DLCO 78% predicted. Comparisons [none] Interpretation [No obstructive nor restrictive ventilatory defects identified. No significant response to bronchodilators noted. Normal maximum voluntary ventilation. Lung volumes are normal except for decrease in the expiratory reserve volume likely secondary to the scoliosis. Diffusing capacity shows a mild diffusion impairment. Clinical correlation warranted.] MTDD
== END 2024-03-05 14:50 | disposition home or self-care (01) ==
LOC: HO.RESP 14:49
PROVIDERS: PCP Physician Assistant; Visit Provider Nurse Practitioner Family
DX: R06.09 Other forms of dyspnea (principal)
CPT/HCPCS: 94010; 94640; 94727; 94729

== ENCOUNTER → 2024-03-05 14:54 | Outpatient (BNV) | payer MEDICARE, OTHER, SELFPAY | PROVIDERS: PCP Physician Assistant; Visit Provider Hospitalist | DX: R06.09 Other forms of dyspnea (principal) | CPT/HCPCS: 94060; 94727; 94729 ==

== ENCOUNTER 2024-07-02 12:50 | Outpatient (REF) | payer MEDICARE, OTHER, SELFPAY ==
--- NOTE | ~2024-07-02 | CT_ITS ---
CLINICAL HISTORY: R91.1 - Solitary pulmonary nodule CT chest without contrast Comparison: CT/NH/SR - CT CHEST WO IV CON - 12/27/23 13:[address]/NH/SR - CT CHEST WO IV CON - 09/04/23 16:13 EDT NH/SR - CT CHEST WO IV CON - 02/12/23 15:20 EST Findings: The heart size is normal. Atherosclerosis calcification of the coronary artery. The visualized thyroid and mediastinum are unremarkable. Mild emphysema. Stable 8.2 x 8.8 mm nodule of the right upper lobe series 4, image 44. There are additional micro nodules. Stable 3 cm hypodense lesion of the liver dome. Degenerative changes of the spine. IMPRESSION: Stable nodule of the right upper lobe. CT chest follow-up in 1 year as indicated. Fleischner Society 2017 Guidelines for incidentally detected indeterminate nodules in persons 35 years of age or older. Single Solid Nodules: 5 mm or smaller nodules need no follow-up in low risk, and [address] follow-up is optional in high risk patients. 6-8 mm nodules have optional [address] follow-up in low risk, and 6-[address] follow-up followed by 18-[address] follow-up if no change in high risk patients. 9 mm or larger nodules should consider CT, PET/CT, or biopsy at 3 months regardless of patient risk. Multiple Solid Nodules: 5 mm or smaller nodules need no follow-up in low risk, and [address] follow-up is optional in high risk patients. 6-8 mm nodules need 3-[address] follow-up followed by an optional 18-[address] follow-up regardless of patient risk. 9 mm or larger nodules should consider 3-[address] follow-up. For low risk 18-24 month follow-up is optional, whereas for high risk it is needed. Single Ground Glass Nodules: 5 mm or smaller nodules need no followup 6 mm and larger nodules need CT at 6-12 months to confirm persistence, then CT every 2 years until 5 years Single Subsolid Nodules: 5 mm or smaller nodules need no followup 6 mm and larger nodules need CT at 3-6 months to confirm persistence. If no change and solid component /T/lt;6 mm, then CT every year until 5 years Multiple Ground Glass or Subsolid Nodules: 5 mm or smaller nodules need CT at 3-6 months. If stable, optional CT at 2 and 4 years. 6 mm or larger nodules need CT at 3-6 months. Subsequent management based on most suspicious nodule This document has been electronically signed by: Steven Hayes MD on 07/02/2024 16:17:31
== END 2024-07-02 12:51 | disposition home or self-care (01) ==
LOC: HO.CT 12:50
PROVIDERS: PCP Physician Assistant; Visit Provider Nurse Practitioner Family
DX: R91.1 Solitary pulmonary nodule (principal)
CPT/HCPCS: 71250

== ENCOUNTER → 2024-07-02 12:52 | Outpatient (BNV) | payer MEDICARE, OTHER, SELFPAY | PROVIDERS: PCP Physician Assistant; Visit Provider Nuclear Medicine | DX: R91.1 Solitary pulmonary nodule (principal) | CPT/HCPCS: 71250 ==

== ENCOUNTER 2025-01-05 13:51 | Outpatient (AMB) | payer MEDICARE, OTHER, SELFPAY ==
--- NOTE | 2025-01-05 13:52 | A.OFFVIS_ITS ---
Vital Signs 01/05/25 13:53 Height 5 ft 3 in Weight 151 lb 2 oz BMI 26.8 BP 126/82 Blood Pressure Location Rt brachial Position Sitting Pulse 73 Pulse Source Pulse Oximeter Pulse Oximetry (%) 98 Oxygen Delivery Method Room Air Intake Visit Reasons: Pre op clearance Allergies No Known Allergies Allergy (Verified 01/05/25 13:56) HPI HPI Pre op clearance: Details: Kathie is a pleasant 74 year old female, former smoker, less than 10 pack year history, quit over 30 years ago, with underlying pulmonary nodule, thyroid carcinoma s/p thyroidectomy 07/2023, hypertension and hypercholesterolemia. Since the last visit patient has lost 60lbs with the use of Ozempic and has had resolution of prior noted dyspnea. At this time, she denies any respiratory symptoms. She denies any recent URI or urgent care/hospitalizations related to respiratory distress. She denies prior need for supplemental oxygen. Today she presents for preoperative pulmonary evaluation for upcoming left hip replacement next week through [facility] as well as review of CT/PFT results. [facility] Medical History (Updated 01/05/25 @ 14:29 by Theresa Mccallum NP) Hypertension Hyperlipidemia GERD (gastroesophageal reflux disease) Osteopenia Osteoarthritis Lumbar spinal stenosis MDD (major depressive disorder) Surgical History (Updated 01/29/23 @ 15:29 by Viv Lantigua PA-C) History of cholecystectomy History of hip replacement Social History Patient Tobacco Use Status: Former Tobacco user Cigarette Packs Per Day: 0.75 Cigarettes Per Day: 15 Years Smoked: 12 Review of Systems Const Denies chills, Denies excessive sweating, Denies fever(s), Denies headache(s) and Denies night sweats Eyes Denies dry eyes, Denies irritation and Denies itchy eyes ENT Reports Normal hearing present, Denies headache(s), Denies nasal congestion, Denies nasal discharge, Denies post nasal drip and Denies sore throat Card Denies chest pain, Denies chest pain at rest, Denies chest pain with activity, Denies claudication, Denies leg edema, Denies dyspnea, Denies dyspnea on exertion, Denies orthopnea and Denies paroxysmal nocturnal dyspnea Resp Denies chest congestion, Denies cough, Denies excessive phlegm production, Denies pain on inspiration, Denies pain with cough, Denies dyspnea, Denies dyspnea on exertion, Denies stridor and Denies wheezing Musc Denies myalgias Neuro Reports Normal hearing present and Denies headache(s) Endo Denies excessive sweating Jens/Lymph Denies lymphadenopathy Aller/Immun Denies itchy eyes, Denies seasonal rhinorrhea and Denies wheezing Physical Exam Vital Signs: Last Vital Signs Pulse 73 01/05/25 13:53 BP 126/82 01/05/25 13:53 Pulse Ox 98 01/05/25 13:53 Oxygen Delivery Method Room Air 01/05/25 13:53 BMI result Body Mass Index 26.8 Const General: cooperative, healthy appearing, comfortable, no acute distress, well developed and alert Orientation/consciousness: patient oriented x3 Limitations: ambulation with cane HEENT Head: Yes normal to inspection, Yes normocephalic and Yes atraumatic Ears: hearing grossly normal bilaterally and external ears normal Eyes General: appearance normal, both eyes and all related structures Eyelids: Yes eyelids normal Sclerae: sclerae normal EOM: EOMs intact bilaterally Neck Neck: Yes normal visual inspection and Yes no lymphadenopathy Lymphatic: no lymphadenopathy noted Chest Chest palpation & inspection: normal inspection of the chest Resp Effort & Inspection: normal respiratory effort, able to speak in complete sentences, no audible wheezes, no cough, no stridor, not tachypneic, no tripod positioning and no use of accessory muscles Auscultation: clear to auscultation bilaterally Cardio Jugular venous distension: no JVD Rate: regular rate Rhythm: regular rhythm Skin Other: warm, dry General skin exam: no rashes or lesions noted Neuro General: patient oriented x3 Cranial nerves: Yes Normal hearing present Cognition (Neuro): normal cognition Gait exam (Neuro): Normal gait present Extrem General: Yes normal to inspection, Yes capillary refill normal, Yes no clubbing, cyanosis or edema and Yes no pedal edema Psych Appearance: grossly normal and well kempt Speech and movement: Normal speech and movement present and Clear speech present Affect: normal affect Attitude: cooperative Thought process: Normal thought process present Thought content: Normal thought content present Insight: Good insight present (Psych) Judgement: Good judgement present (Psych) Results Reviewed Results Reviewed: [address] [address] [address] Scan Report Signed Patient: Kathie Coleman#: [id number] : 1950 Acct:[id number] Age/Sex: 73 / F ADM Date: 07/02/24 Loc: HO.CT Attending Dr: Theresa Mccallum NP Ordering Physician: Theresa Mccallum NP Date of Service: 07/02/24 Procedure(s): CT chest wo IV con Accession Number(s): [id number] cc: CED GRANDA; Theresa Mccallum NP~ Report Number: [id number]: Total DLP = 191.00 mGy-cm CLINICAL HISTORY: R91.1 - Solitary pulmonary nodule CT chest without contrast Comparison: CT/[place]/SR - CT CHEST WO IV CON - 12/27/23 13:[address]/MN/SR - CT CHEST WO IV CON - 09/04/23 16:13 EDT MN/SR - CT CHEST WO IV CON - 02/12/23 15:20 EST Findings: The heart size is normal. Atherosclerosis calcification of the coronary artery. The visualized thyroid and mediastinum are unremarkable. Mild emphysema. Stable 8.2 x 8.8 mm nodule of the right upper lobe series 4, image 44. There are additional micro nodules. Stable 3 cm hypodense lesion of the liver dome. Degenerative changes of the spine. IMPRESSION: Stable nodule of the right upper lobe. CT chest follow-up in 1 year as indicated. Fleischner Society 2017 Guidelines for incidentally detected indeterminate nodules in persons 35 years of age or older. Single Solid Nodules: 5 mm or smaller nodules need no follow-up in low risk, and [address] follow-up is optional in high risk patients. 6-8 mm nodules have optional [address] follow-up in low risk, and 6-[address] follow-up followed by 18-[address] follow-up if no change in high risk patients. 9 mm or larger nodules should consider CT, PET/CT, or biopsy at 3 months regardless of patient risk. Multiple Solid Nodules: 5 mm or smaller nodules need no follow-up in low risk, and [address] follow-up is optional in high risk patients. 6-8 mm nodules need 3-[address] follow-up followed by an optional 18-[address] follow-up regardless of patient risk. 9 mm or larger nodules should consider 3-[address] follow-up. For low risk 18-24 month follow-up is optional, whereas for high risk it is needed. Single Ground Glass Nodules: 5 mm or smaller nodules need no followup 6 mm and larger nodules need CT at 6-12 months to confirm persistence, then CT every 2 years until 5 years Single Subsolid Nodules: 5 mm or smaller nodules need no followup 6 mm and larger nodules need CT at 3-6 months to confirm persistence. If no change and solid component /T/lt;6 mm, then CT every year until 5 years Multiple Ground Glass or Subsolid Nodules: 5 mm or smaller nodules need CT at 3-6 months. If stable, optional CT at 2 and 4 years. 6 mm or larger nodules need CT at 3-6 months. Subsequent management based on most suspicious nodule This document has been electronically signed by: Steven Hayes MD on 07/02/2024 16:17:31 Dictated By: Steven Hayes MD Signed By: <Electronically signed by Steven Hayes MD in OV> 07/02/24 1618 DD/ 16 TD/TT: 07/02/241616 Leaf Size Picker: Assessment & Plan Assessment & Plan (1) Encounter for preoperative pulmonary examination: Code(s): Z01.811 - Encounter for preprocedural respiratory examination Category: Medical (2) Pulmonary nodule: Code(s): R91.1 - Solitary pulmonary nodule Category: Medical Plan Prior PFT performed revealed severe obstructive defect however there were in accuracies in likely related to technical reasons. Repeat PFT 02/2024 revealed no obstructive nor restrictive ventilatory defects identified. No significant response to bronchodilators noted. Normal maximum voluntary ventilation. Lung volumes are normal except for decrease in the expiratory reserve volume likely secondary to the scoliosis. Diffusing capacity shows a mild diffusion impairment. Chest CT 06/2024 revealed stable 8.2 x 8.8 mm nodule of the right upper lobe. Will repeat in one year to assess stability. Currently patient denies any respiratory symptoms since losing 60lbs. At this time, patient would be considered low risk for perioperative pulmonary complications for proposed left hip arthroplasty. All questions were answered and patient is in agreement of plan. Will follow up to review results of chest CT or sooner if needed. Orders: Orders CT chest wo IV con 6 Months R91.1 - Solitary pulmonary nodule Coding Level of Care Code Est Pt Level 4 (81066) Complex EM visit Add On G2211 Diagnoses Encounter for preoperative pulmonary examination Z01.811 Pulmonary nodule R91.1
[2025-01-05 13:53] VITALS: BP 126/82; PULSE 73; O2SAT 98; BMI 26.8
--- OUTSIDE RECORDS SUMMARY | 2025-01-05 16:52 | XMS_ITS | Clinical Summary ---
Author Organization [facility] Address [address] [place] [id number] Phone Care Team Providers Care Windshield Installer Name Role Phone Yoan Dixon MD Primary Care Provider [phone] Allergies No known active allergies Medications omeprazole (PRILOSEC) 40 MG capsule Take 40 mg by mouth daily. Active irbesartan-hydro CHLOROthiazide (AVALIDE) 150-12.5 mg per tablet Take 1 tablet by mouth daily. Active buPROPion (WELLBUTRIN XL) 150 MG ER 24 hr tablet Take 150 mg by mouth daily. Active metoprolol succinate (TOPROL-XL) 50 MG 24 hr tablet Take 50 mg by mouth daily. Active Family History Medical History Relation Comments Alcohol abuse Father Colon cancer Mother Relation Status Comments Father Mother Social History Tobacco Use Types Packs/Day Years Used Date Smoking Tobacco: Never Smokeless Tobacco: Never Alcohol Use Standard Drinks/Week Comments Never 0 (1 standard drink = 0.6 oz pur e alcohol) Education Answer Date Recorded Are you interested in more education? Not on ingrid e 07/20/2022 Are you concerned about learning? Not on file 07/20/2022 No 07/20/2022 No 07/20/2022 Digital Access Answer Date Recorded No 08/18/2022 No 08/18/2022 No 08/18/2022 Reliable internet access at home? Not on file 08/18/2022 Device with a working camera? Not on file Comments Unknown Sex and Gender Information Value Date Recorded Sex Assigned at Female 11/10/2018 3:32 PM EDT Legal Sex Female 3:24 PM EDT Gender Identity Female 11/10/2018 3:32 PM EDT Sexual Orientation Straight 11/10/2018 3: 32 PM EDT Last Filed Vital Signs Vital Sign Reading Time Taken Comments Blood Pressure 107/81 04/07/2019 2:45 PM EST Pulse 74 04/07/2019 2:45 PM EST Temperature - - Respiratory Rate - - Oxygen Saturation - - Inhaled Oxygen Concentration - - Weight 79.4 kg (175 lb) 03/05/2019 1:27 PM EST Height 160 cm (5' 3 ) 03/05/2019 1:27 PM EST Body Mass Index 31 03/05/2019 1:27 PM EST Plan of Treatment Health Maintenance Due Date Last Done Comments Adult Td,Tdap Booster 1950 CREATININE LEVEL 1950 LIPID PANEL 1950 POTASSIUM LEVEL 1950 DEPRESSION SCREENING 1964 HEPATITIS C SCREENING 1970 MAMMOGRAM 1992 COLOGUARD 1997 COLONOSCOPY 1997 COLORECTAL CANCER SCREENING 1997 FIT TEST 1997 FOBT 1997 SIGMOIDOSCOPY 1997 VIRTUAL COLONOSCOPY 1997 PNEUMOCOCCAL VACCINES (50+ y ears) (1 of 1 - PCV) 2002 ZOSTER VACCINES (1 of 2) 2002 OSTEOPOROSIS SCREENING INITI AL (ONE-TIME) 2017 INFLUENZA VACCINE (#1) 2024 COVID-19 VACCINE ( - 2024-2 6 season) 2024 RSV VACCINE (1 - 1-dose 75+ series) 10/29/2027 SMOKING STATUS SCREENING (On ce After 26 Yrs) Completed 04/07/2019 HEPATITIS A VACCINES Aged Out No long er eligible based on patient's age to complete this topic HIB VACCINES Aged Out No longer eligi ble based on patient's age to complete this topic MENINGOCOCCAL VACCINES (ACWY) Aged Out No longer eligible based on patient's age to complete this topic MENINGOCOCCAL VACCINES (B) Aged Out N o longer eligible based on patient's age to complete this topic Medical Devices Not on file Insurance MEDICARE PART A & B [employer] MEDICARE SUPPLEMENT MEDICARE PART A & B [employer] MEDICARE SUPPLEMENT MEDICARE PART A & B [facility] MEDICARE SUPPLEMENT MEDICARE PART A & B [employer] MEDICARE SUPPLEMENT MEDICARE PART A & B [employer] EXTENSION MEDICARE SUPPLEMENT MEDICARE PART A & B [facility] MEDICARE SUPPLEMENT MEDICARE PART A & B [facility] EXTENSION MEDICARE SUPPLEMENT MEDICARE PART A & B [facility] EXTENSION MEDICARE SUPPLEMENT MEDICARE PART A & B [facility] EXTENSION MEDICARE SUPPLEMENT Care Teams Windshield Installer Relationship Specialty Start Date End Date Yoan Dixon MD [address] [place] [address] [address] [place] [address] PCP - General Internal Medicine 11/10/18 Additional Source Comments The information contained in this document represents components of the legal health record. It is not the complete legal health record[facility]
== END 2025-01-05 14:20 | disposition home or self-care (01) ==
LOC: HO.HPSW 13:52
PROVIDERS: PCP Physician Assistant; Visit Provider Nurse Practitioner Family
DX: Z01.811 Encounter for preprocedural respiratory examination (principal); R91.1 Solitary pulmonary nodule
CPT/HCPCS: 99214; G2211

== ENCOUNTER → 2025-01-05 13:51 | Outpatient (BNVA) | payer MEDICARE, OTHER, SELFPAY | PROVIDERS: PCP Physician Assistant; Visit Provider Nurse Practitioner Family | DX: Z01.811 Encounter for preprocedural respiratory examination (principal); R91.1 Solitary pulmonary nodule | CPT/HCPCS: 99212 ==